=== PATIENT | male | born 1985 | race Caucasian/White ===

== ENCOUNTER 2022-12-25 08:05 | Outpatient (CLI) | payer OTHER, SELFPAY ==
--- NOTE | 2022-12-25 | CRLHL7_ITS ---
For Patients: As a result of the Cures Act, medical imaging exams and procedure reports are released immediately into your electronic medical record. You may view this report before your referring provider. If you have questions, please contact your health care provider. INDICATION: Pre MRI screen for metallic foreign body. COMPARISON: none TECHNIQUE: AP hutson view of the orbits FINDINGS: There is no evidence of a metallic foreign body over either orbit. The paranasal sinuses are clear. IMPRESSION: No evidence of metallic foreign body. Dictated by Rodriguez Mccabe MD @ 12/25/2022 12:02:13 PM (Electronically Signed)
--- NOTE | 2022-12-25 08:15 | CRLHL7_ITS ---
For Patients: As a result of the Century Cures Act, medical imaging exams and procedure reports are released immediately into your electronic medical record. You may view this report before your referring provider. If you have questions, please contact your health care provider. Indication: Right shoulder pain. Procedure : Informed consent was obtained. The site was marked. Time-out was performed. The skin of the right shoulder was cleansed with ChloraPrep. A sterile drape was placed. 8 cc of 1 percent lidocaine was administered for superficial anesthesia. Subsequently a 22 gauge spinal needle was introduced into the right shoulder joint under intermittent fluoroscopic guidance. Injection of 2 cc nonionic Omnipaque 240 contrast confirmed intra-articular location. Subsequently 11 cc of dilute gadolinium were injected. The needle was removed and hemostasis achieved with direct pressure. A dressing was placed. The patient tolerated the procedure well without immediate complication and was immediately sent to MRI for imaging. Total fluoroscopy time 38 seconds. Impression: Successful fluoroscopically guided right shoulder arthrogram for MRI. Dictated by Rodriguez Mccabe MD @ 12/25/2022 12:10:30 PM (Electronically Signed)
--- NOTE | 2022-12-25 09:15 | MR_ITS ---
[address] [address] Phone:?[phone] Fax:?[phone] Referring Physician Information: Adrien Blakely M.D. [id number] [address] Phone:?[phone] Fax:?[phone] Patient:Matilda Pathak Dennis.O.B:?1985 Sex:?Male Phone:?[phone] [facility] MRN:?[id number] Exam Date:?12/25/2022 EXAM: MR ARTHROGRAM of the RIGHT SHOULDER CLINICAL INFORMATION: Male, 37 years old, with right upper arm/shoulder pain. INDICATION: Evaluate for rotator cuff tear. PRIOR SURGERY: None reported. PLAIN FILMS: None available. COMPARISONS: No prior MRIs available. TECHNICAL INFORMATION: Exam performed after the injection of gadolinium-based contrast into the glenohumeral joint of the right shoulder, reported separately. Using a 1.5T MR scanner and a localizing surface coil: coronal obliques: PD, T2FS, T1FS sagittal obliques: T2, PDFS axials: PD, PDFS SEDATION: None CONTRAST: No intravenous contrast was administered. FINDINGS: Bones: Proximal humerus: No fracture or marrow edema/pathology. No humeral Hill-Sachs or reverse Hill-Sachs lesion/impaction or contusion. Glenoid: No fracture or marrow edema/pathology. No osseous Bankart lesion. Rotator cuff and muscles/tendons: Supraspinatus: Mild supraspinatus tendinopathy, without tendon tear or muscle atrophy. Infraspinatus: Mild infraspinatus tendinopathy, without tendon tear or muscle atrophy. Teres minor: No tendinopathy, tear or atrophy. Subscapularis: Mild tendinopathy of the screw distal subscapularis, without tendon tear or muscle atrophy. Deltoid: No strain or atrophy. Coracoacromial arch: Acromion morphology: The acromion has type II morphology. No discrete subacromial osseous spur or os acromiale. Acromiohumeral space: The acromiohumeral space is within normal limits. Coracohumeral space: The coracohumeral space is within normal limits. Acromioclavicular joint: Joint: Mild-moderate AC joint arthropathy, without significant inferior osteophytosis or evidence of supraspinatus impingement (coronal PDFS series 5 image 13). Ligaments: Coracoclavicular ligaments are intact. Bursae: Subacromial-subdeltoid: Mild subacromial-subdeltoid bursal thickening/edema. Subcoracoid: No convincing subcoracoid bursal thickening/bursitis. Biceps tendon: The long head of the biceps tendon is present within the bicipital groove. Mild tendinopathy of the intra-articular biceps long head tendon. Glenohumeral joint: Contrast: Gadolinium-based contrast distends the glenohumeral joint, as expected, and fails to extend into the subacromial-subdeltoid bursa. Articular cartilage: Humeral head: No osteochondral abnormalities. Glenoid: No osteochondral abnormalities. Loose bodies: No discrete intra-articular body within the joint. Labrum:?Partial thickness tearing at the base of the superior labrum measures 1.0 cm (coronal T1FS series 6 images 14-17). The labrum is otherwise intact. No paralabral cyst. Inferior glenohumeral ligament/axillary pouch:?Moderate thickening of the inferior capsuloligamentous structures (coronal PD series 7 images 14-20). Additionally, there is soft tissue thickening throughout the rotator interval (sagittal T2 series 9 images 7-14). IMPRESSION: 1. Mild supraspinatus, infraspinatus, & subscapularis tendinopathy. No rotator cuff tendon tear. 2. Mild-moderate AC joint arthropathy with mild subacromial-subdeltoid bursal inflation. However, the acromiohumeral space is normal and there is no evidence of impingement at the AC joint. 3. Findings in keeping with any clinical symptoms of adhesive capsulitis. 4. Partial thickness linear tearing at the base of the superior labrum measures 1.0 cm. No paralabral cyst. 5. Mild tendinopathy of the intra-articular biceps long head tendon, without split/tear. 6. No full-thickness chondral defect or evidence of glenohumeral joint osteoarthritis. BC Electronically signed on 12/25/2022 1:38:00 PM by Johnnie Rodriguez M.D.
== END 2022-12-25 08:06 | disposition home or self-care (01) ==
PROVIDERS: Visit Provider Orthopaedic Surgery
DX: M75.101 Unspecified rotator cuff tear or rupture of right shoulder, not specified as traumatic (principal); S49.91XA Unspecified injury of right shoulder and upper arm, initial encounter
CPT/HCPCS: 23350; 70030; 73222; 77002; A9575; Q9966

== ENCOUNTER 2023-03-31 16:15 | Outpatient (RCR) | payer OTHER, BC, SELFPAY | END 2023-04-01 09:22 | disposition home or self-care (01) | PROVIDERS: Visit Provider Orthopaedic Surgery | DX: M75.80 Other shoulder lesions, unspecified shoulder (principal); S43.439A Superior glenoid labrum lesion of unspecified shoulder, initial encounter; M25.511 Pain in right shoulder; Z74.09 Other reduced mobility; R53.1 Weakness; Z51.89 Encounter for other specified aftercare | CPT/HCPCS: 97110; 97140; 97162 ==

== ENCOUNTER 2023-07-15 07:34 | Outpatient (CLI) | payer OTHER, SELFPAY | END 2023-07-15 07:35 | disposition home or self-care (01) | LOC: NFLDREF 07-16 10:28 | PROVIDERS: PCP Internal Medicine; Referring Provider Internal Medicine; Visit Provider Internal Medicine | DX: Z13.228 Encounter for screening for other metabolic disorders (principal); Z13.220 Encounter for screening for lipoid disorders | CPT/HCPCS: 80053; 80061 ==